=== PATIENT | female | born 1980 | race African-American/Black ===

== ENCOUNTER 2019-12-09 15:09 | Emergency (ER) | payer MEDICAID, OTHER ==
[~2019-12-09] VITALS: Ht 165.1 cm; Wt 83.9 kg
[2019-12-09 15:36] VITALS: BP 146/83
== END 2019-12-09 20:39 | disposition left against medical advice (07) ==
LOC: ER 15:15
DX: H57.89 Other specified disorders of eye and adnexa (principal); Z53.21 Procedure and treatment not carried out due to patient leaving prior to being seen by health care provider

== ENCOUNTER 2022-08-27 12:34 | Emergency (ER) | payer MEDICAID, OTHER ==
[~2022-08-27] VITALS: Ht 165.1 cm; Wt 95.9 kg
[2022-08-27 13:22] VITALS: BP 117/66
[2022-08-27] MEDS ORDERED: KETOROLAC TROMETH 60MG/2ML VIAL IM ONE (13:30)
[2022-08-27] MEDS ORDERED: METH750T22 PO (14:11)
[2022-08-27] MEDS ORDERED: IBUP800T27 PO (14:11)
== END 2022-08-27 14:03 | disposition home or self-care (01) ==
LOC: ER 12:34
DX: S93.401A Sprain of unspecified ligament of right ankle, initial encounter (principal); S46.912A Strain of unspecified muscle, fascia and tendon at shoulder and upper arm level, left arm, initial encounter; S83.91XA Sprain of unspecified site of right knee, initial encounter; S20.02XA Contusion of left breast, initial encounter; V43.52XA Car driver injured in collision with other type car in traffic accident, initial encounter; Y93.89 Activity, other specified; Y92.488 Other paved roadways as the place of occurrence of the external cause; Y99.8 Other external cause status
CPT/HCPCS: 71046; 73562; 73610; 96372; 99284; J1885